=== PATIENT | female | born 1980 | race Hispanic/Latino ===

== ENCOUNTER 2020-02-05 14:22 | Outpatient (CLI) | payer MEDICAID ==
--- NOTE | 2020-02-05 16:16 | XRay Report ---
HISTORY:ELBOW PAIN COMPARISON: None. TECHNIQUE: AP and lateral views were obtained FINDINGS: Bones: No fracture or dislocation. Joint spaces: Maintained. Soft tissues: No significant abnormality. Additional findings: None. IMPRESSION: 1. No significant abnormality. Signer Name: Eduardo Ba MD Signed: 02/05/2020 4:11 PM Workstation Name: [id number]
== END 2020-02-05 14:23 | disposition home or self-care (01) ==
LOC: SPVIMAG 14:22
PROVIDERS: ATTEND Urology
DX: M25.521 Pain in right elbow (principal)